=== PATIENT | male | born 1965 | race Caucasian/White ===

== ENCOUNTER → 2021-04-29 15:13 | Outpatient (REF) | payer MEDICARE, MEDICAID, SELFPAY ==
--- NOTE | 2021-04-29 15:21 | ECG_ITS ---
Test Reason : chr pain syndrome Blood Pressure : / mmHG Vent. Rate : 070 BPM Atrial Rate : 070 BPM P-R Int : 156 ms QRS Dur : 090 ms QT Int : 354 ms P-R-T Axes : 086 067 075 degrees QTc Int : 382 ms Normal sinus rhythm with sinus arrhythmia RSR' or QR pattern in V1 suggests right ventricular conduction delay Intra-ventricular conduction delay When compared with ECG of 09-FEB-2020 18:35, No significant changes seen Referred By: Naseem Paredes Electronically Signed By:NELSON ESQUIVEL MD
== END ==
LOC: HO.CARD 15:13
PROVIDERS: PCP Internal Medicine; Visit Provider Physical Medicine & Rehabilitation
DX: G89.4 Chronic pain syndrome (principal); R10.2 Pelvic and perineal pain; Z79.891 Long term (current) use of opiate analgesic
CPT/HCPCS: 93005

== ENCOUNTER 2023-06-14 09:43 | Outpatient (AMB) | payer MEDICARE, MEDICAID, SELFPAY ==
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
[2023-06-14 09:45] VITALS: BP 100/68; PULSE 77; O2SAT 96; BMI 25.7
== END 2023-06-14 10:26 | disposition home or self-care (01) ==
PROVIDERS: PCP Internal Medicine; Visit Provider Internal Medicine
DX: R51.9 Headache, unspecified (principal); G89.29 Other chronic pain; M54.50 Low back pain, unspecified; N50.819 Testicular pain, unspecified; R09.81 Nasal congestion; G47.9 Sleep disorder, unspecified; H54.7 Unspecified visual loss; F90.9 Attention-deficit hyperactivity disorder, unspecified type; F41.1 Generalized anxiety disorder
CPT/HCPCS: 99214

== ENCOUNTER 2023-11-19 12:13 | Outpatient (AMB) | payer MEDICARE, MEDICAID, SELFPAY ==
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
[2023-11-19 12:34] VITALS: BP 124/84; PULSE 85; O2SAT 97; BMI 22.9
== END 2023-11-19 13:01 | disposition home or self-care (01) ==
PROVIDERS: PCP Internal Medicine; Visit Provider Internal Medicine
DX: Z00.00 Encounter for general adult medical examination without abnormal findings (principal); R51.9 Headache, unspecified; G89.29 Other chronic pain; M54.50 Low back pain, unspecified; N50.819 Testicular pain, unspecified; R09.81 Nasal congestion; G47.9 Sleep disorder, unspecified; H54.7 Unspecified visual loss; F90.9 Attention-deficit hyperactivity disorder, unspecified type; F41.1 Generalized anxiety disorder
CPT/HCPCS: 99396

== ENCOUNTER 2023-12-15 16:52 | Emergency (ER) | payer MEDICARE, MEDICAID, SELFPAY ==
--- NOTE | ~2023-12-15 | XR_ITS ---
EXAMINATION: XR CHEST 2 VIEWS CLINICAL INFORMATION: Chest pain. COMPARISON: Prior chest radiographs, most recently 05/30/2019. TECHNIQUE: Frontal and lateral views of the chest were obtained. FINDINGS: The heart, great vessels, pulmonary vasculature and mediastinum are normal. The lungs show no focal infiltrate, effusion or pneumothorax. There is no acute osseous abnormality. XR/XR chest 2V IMPRESSION: No active cardiopulmonary disease.
--- NOTE | 2023-12-15 16:58 | ECG_ITS ---
Test Reason : CHEST PAIN Blood Pressure : / mmHG Vent. Rate : 083 BPM Atrial Rate : 083 BPM P-R Int : 154 ms QRS Dur : 090 ms QT Int : 344 ms P-R-T Axes : 083 017 064 degrees QTc Int : 404 ms Normal sinus rhythm Normal ECG When compared with ECG of 29-APR-2021 15:26, No significant change was found Referred By: Sherice Lin Electronically Signed By:JONELLE KINGSTON
[2023-12-15 17:35] VITALS: BP 111/71; PULSE 70; RESP 16; TEMP 36.3; O2SAT 97; BMI 22.1
--- NOTE | 2023-12-15 17:37 | ED_ITS ---
HPI - General Adult General Chief complaint: Chest Pain Stated complaint: chest pain, leg pain, fatigue Related Data Home Medications ?Medication ?Instructions ?Recorded ?Confirmed methadone 10 mg tablet 10 mg PO QID chronic pain 06/14/23 11/19/23 Previous Rx's ?Medication ?Instructions ?Recorded dextroamphetamine-amphetamine 20 20 mg PO DAILY 30 days #30 tabs 11/25/23 mg tablet (Adderall) lorazepam 1 mg tablet 1 mg PO BID PRN anxiety 30 days 12/13/23 #60 tabs Allergies Allergy/AdvReac Type Severity Reaction Status Date / Time No Known Allergies Allergy Verified 12/15/23 17:36 [facility] Past Medical History Medical History (Updated 12/16/23 @ 00:00 by Jackie Hayden) Chronic facial pain Benign prostatic hyperplasia Anxiety disorder Attention deficit hyperactivity disorder (ADHD) Chronic pain in testicle Chronic low back pain Surgical History (Updated 11/19/23 @ 12:56 by Jerome Strauss MD) Hx of vasectomy History of urologic surgery History of facial surgery History of shoulder surgery Family History Family History Father Diabetes Hypertension Hyperlipidemia CHF (congestive heart failure) Mother Diabetes Hypertension Hyperlipidemia CVD (cardiovascular disease) Social History Social History Housing: House Patient Tobacco Use Status: Never used Tobacco e-Cigarette/Vaping Use: Never Used Advance Directives: No Advance Directives Information Provided: No service: No Current occupational status: disabled Cognitive needs: No Hearing needs: No Vision needs: No Physical Exam ED Vital Signs: BMI result Body Mass Index 22.1 Course Course Course Narrative: This is a rapid medical exam performed by Harpreet Lin NP: Additional HPI, ROS, PE not included below will be deferred to primary provider. Patient is a 58-year-old male with history of BPH, ADHD, anxiety presenting to the ED with complaint of intermittent chest pain and tightness for the past year. Denies coughing. Reports 30lb weight loss over the past 3 months to one year, patient unsure. Calf and thigh spasms. Currently on methadone for pain. Saw PCP on 11/18, did not mention the chest pain at that time. Son is with patient, states he wants patient checked out all at once and patient admits he doesn't like going to the doctor, having labs drawn, etc. Plan: labs, cxr Medical Decision Making Lab Data 12/15/23 17:58 12/15/23 17:58 Labs: Lab Results 12/15/23 Range/Units 17:58 WBC 5.4 (4.8-10.8) X10*3/uL RBC 3.81 L (4.60-5.80) X10*6/uL Hgb 10.6 L (14.0-18.0) g/dl Hct 31.2 L (42.0-52.0) % MCV 81.9 (80.0-98.0) fL MCH 27.8 (27.0-33.0) pg MCHC 34.0 (31.0-36.0) g/dl RDW 13.7 (11.0-16.0) % Plt Count 134 L (160-400) X10*3/uL MPV 10.6 (9.4-12.4) fL Immature Gran % (Auto) 0.2 (0.0-0.4) % Neut % (Auto) 68.7 (45-73) % Lymph % (Auto) 14.2 L (20-40) % [place] % (Auto) 10.9 (2-11) % Eos % (Auto) 5.3 H (0-4) % Baso % (Auto) 0.7 (0-2) % Lymph # (Auto) 0.8 L (1.2-4.9) X10*3/uL [place] # (Auto) 0.6 (0.1-1.2) X10*3/uL Eos # (Auto) 0.3 (0.0-0.4) X10*3/uL Baso # (Auto) 0.0 (0.0-0.2) X10*3/uL Abs Immat Gran (auto) 0.01 (0.00-0.03) X10*3/uL Absolute Neuts (auto) 3.7 (2.0-8.3) x10*3/uL Absolute Nucleated RBC 0.000 (0.0-0.012) X10*3/uL Nucleated RBC % (auto) 0.0 (0.0-0.2) /100WBC PT 12.7 (11.1-13.3) SEC INR 1.0 (0.9-1.1) Sodium 139 (135-145) mmol/L Potassium 4.1 (3.3-5.1) mmol/L Chloride 105 (96-108) mmol/L Carbon Dioxide 23 (22-29) mmol/L Anion Gap 15 (12-20) BUN 50 H (9-16) mg/dL Creatinine 3.17 H (0.5-1.4) mg/dL Estim Creat Clear Calc 23.7 Estimated GFR 20 Random Glucose 123 H (60-115) mg/dL Calcium 9.3 (8.4-10.2) mg/dL Magnesium 1.8 (1.6-2.6) mg/dL Total Bilirubin 0.3 (0.0-1.0) mg/dL AST 31 (5-37) U/L ALT 52 H (0-40) U/L Alkaline Phosphatase 144 H (39-117) U/L Troponin I High Sens < 2.7 (<3.5-35.0) ng/L Total Protein 6.6 (6.5-8.0) g/dL Albumin 3.9 (3.5-5.0) g/dL TSH 3.57 (0.32-4.0) uIU/mL Discharge Plan Discharge Clinical Impression: Diagnosis unknown Patient Disposition: Left W/O Completing Treatment Prescriptions: No Action dextroamphetamine-amphetamine [Adderall] 20 mg tablet 20 mg PO DAILY 30 Days Qty: 30 0RF Rx Instructions: This will be the LAST REFILL UNLESS patient schedules and is SEEN for a follow up appt. He has NOT BEEN SEEN IN OVER A YEAR. NO MORE REFILLS AFTER THIS UNLESS PATIENT KEEPS APPT - needs to schedule one BYRON lorazepam 1 mg tablet 1 mg PO BID PRN (Reason: anxiety) 30 Days Qty: 60 0RF methadone 10 mg tablet 10 mg PO QID Rx Instructions: total of 40 mg/day - Rx is being prescribed and managed by [facility] Discharge Date/Time: 12/15/23 21:21
[2023-12-15 18:03] LABS: MANUAL DIFF FLAG NO
[2023-12-15 18:16] LABS: Prothrombin Time 12.7 SEC (11.1-13.3)
[2023-12-15 18:24] LABS: Basophils Percent Auto 0.7 % (0-2); Eosinophils Absolute Auto 0.3 X10*3/uL (0.0-0.4); Eosinophils Percent Auto 5.3 % (0-4); Hematocrit 31.2 % (42.0-52.0); Hemoglobin 10.6 g/dl (14.0-18.0); Imm Gran Abs Auto 0.01 X10*3/uL (0.00-0.03); Imm Gran Pct Auto 0.2 % (0.0-0.4); Lymphocytes Absolute Auto 0.8 X10*3/uL (1.2-4.9); Lymphocytes Percent Auto 14.2 % (20-40); Mean Corpuscular Hemoglobin 27.8 pg (27.0-33.0); Mean Corpuscular Volume 81.9 fL (80.0-98.0); Mean Platelet Volume 10.6 fL (9.4-12.4); Monocytes Absolute Auto 0.6 X10*3/uL (0.1-1.2); Monocytes Percent Auto 10.9 % (2-11); Neutrophils Absolute Auto 3.7 x10*3/uL (2.0-8.3); Neutrophils Percent Auto 68.7 % (45-73); Platelet Count 134 X10*3/uL (160-400); Red Blood Count 3.81 X10*6/uL (4.60-5.80); Red Cell Distribution Width 13.7 % (11.0-16.0); White Blood Count 5.4 X10*3/uL (4.8-10.8)
[2023-12-15 18:30] LABS: Alanine Aminotransferase 52 U/L (0-40); Albumin Level 3.9 g/dL (3.5-5.0); Alkaline Phosphatase 144 U/L (39-117); Anion Gap 15 (12-20); Aspartate Amino Transferase 31 U/L (5-37); Bilirubin Total 0.3 mg/dL (0.0-1.0); Blood Urea Nitrogen 50 mg/dL (9-16); Calcium 9.3 mg/dL (8.4-10.2); Carbon Dioxide 23 mmol/L (22-29); Chloride 105 mmol/L (96-108); Creatinine Clr Calc Pharmacy 23.7; Estimated Glomerular Filt Rate 20; Glucose Random 123 mg/dL (60-115); Magnesium 1.8 mg/dL (1.6-2.6); Potassium 4.1 mmol/L (3.3-5.1); Sodium 139 mmol/L (135-145); Total Protein 6.6 g/dL (6.5-8.0)
[2023-12-15 18:32] LABS: Troponin-I High Sensitivity < 2.7 ng/L (<3.5-35.0)
[2023-12-15 18:44] LABS: TSH reflex Free T4 3.57 uIU/mL (0.32-4.0)
[2023-12-18 00:43] LABS: A. Phagocytphilium DNA,RT-PCR NOT DETECTED (NOT DETECTED); Babesia Microti DNA, RT-PCR NOT DETECTED (NOT DETECTED); Borrelia Miyamotoi,DNA RT-PCR NOT DETECTED (NOT DETECTED); E.Chaffeensis DNA RT-PCR NOT DETECTED (NOT DETECTED); Lyme(Borrelia ssp)DNA RT-PCR NOT DETECTED (NOT DETECTED)
== END 2023-12-15 21:21 | disposition left against medical advice (07) ==
PROVIDERS: Registered Nurse Emergency; Emergency Provider Emergency Medicine; PCP Internal Medicine
DX: R07.9 Chest pain, unspecified (principal); M79.606 Pain in leg, unspecified; R53.83 Other fatigue
CPT/HCPCS: 36415; 71046; 80053; 83735; 84443; 84484; 85025; 85610; 87468; 87469; 87478; 87484; 87798; 93005; 99283

== ENCOUNTER → 2023-12-15 16:58 | Outpatient (BNV) | payer MEDICARE, MEDICAID, SELFPAY | PROVIDERS: Emergency Provider Emergency Medicine; PCP Internal Medicine; Visit Provider Internal Medicine | DX: R07.9 Chest pain, unspecified (principal) | CPT/HCPCS: 93010 ==

== ENCOUNTER 2023-12-17 11:15 | Emergency (ER) | payer MEDICARE, MEDICAID, SELFPAY ==
--- NOTE | ~2023-12-17 | CT_ITS ---
EXAMINATION: CT CHEST WITHOUT CONTRAST CLINICAL INFORMATION: Dyspnea. 30 pound weight loss. COMPARISON: Previous chest x-ray 12/15/2023 TECHNIQUE: Multidetector volumetric CT imaging of the chest was done. Axial MIP volume rendering provided. Sagittal and coronal reformatted images were obtained. This CT examination was performed using dose optimization techniques as appropriate, variously including the following: *Automated exposure control *Adjustment of mA and/or kV according to patient size (this includes techniques or standardized protocols for targeted exams where dose is matched to indication/reason for exam; i.e. extremities or head) *Use of iterative reconstruction technique DLP: 244 mGy-cm FINDINGS: LUNGS: Lungs are well-inflated. 2 mm. Fissural right lower lobe nodule axial image 238 series 7. This probably represents a subpleural lymph node. 2 mm perifissural right middle lobe nodule adjacent to the minor fissure also probably representing a perifissural lymph node. 3 mm peripheral or subpleural right middle lobe nodule probably representing a subpleural lymph node axial image 365 series 7. 2 mm peripheral right lower lobe nodule axial image 368 series 7. 2 mm calcified left lower lobe nodule axial image 407 series 7. Scarring or subsegmental atelectasis at the lung bases. No endobronchial or endotracheal lesion. MEDIASTINUM: Normal heart size. No pericardial effusion. Shotty mediastinal lymphadenopathy. Normal caliber thoracic aorta. CORONARY ARTERY CALCIFICATION: None visualized on this study. PLEURA: There is no pleural effusion. No pleural mass or thickening. AXILLA: No lymphadenopathy. UPPER ABDOMEN: See abdominal and pelvic CT report from the same day OSSEOUS STRUCTURES: Degenerative changes of the spine. CT/CT chest wo IV con IMPRESSION: Well inflated lungs. Small pulmonary nodules. According to the UPDATED 2017 Fleischner Society recommendations, the advised follow-up imaging for less than 6 mm solid nodule: Low risk, no chest CT follow-up and high risk, optional chest CT follow-up in one year. Fleischner guidelines were followed.
--- NOTE | ~2023-12-17 | CT_ITS ---
EXAMINATION: CT ABDOMEN AND PELVIS WITHOUT CONTRAST CLINICAL INFORMATION: Acute renal failure. 30 pound weight loss. COMPARISON: None available. TECHNIQUE: Multidetector volumetric imaging was performed from the superior aspect of the liver through the pubic symphysis. Sagittal and coronal reformatted images were obtained on the technologist's workstation. This CT examination was performed using dose optimization techniques as appropriate, variously including the following: *Automated exposure control *Adjustment of mA and/or kV according to patient size (this includes techniques or standardized protocols for targeted exams where dose is matched to indication/reason for exam; i.e. extremities or head) *Use of iterative reconstruction technique DLP: 358 mGy-cm FINDINGS: LIVER, GALLBLADDER, AND BILIARY TREE: The liver is normal in size, shape, and attenuation. No focal hepatic lesion or intrahepatic biliary ductal dilatation is present. The gallbladder is unremarkable with no evidence of radiopaque gallstones, gallbladder wall thickening, or obvious pericholecystic inflammatory changes. The common bile duct is dilated measuring up to 1.4 cm. PANCREAS: Unremarkable. SPLEEN: Lightly enlarged measuring 14 cm in length. ADRENAL GLANDS: Unremarkable. KIDNEYS AND URETERS: The kidneys are normal in size, both measuring 12.7 cm in length. There is question bilateral renal cortical thickening. No hydronephrosis, hydroureter, or calculi seen. No perinephric stranding. BLADDER: Not optimally distended. Difficult to exclude mild diffuse bladder wall thickening. Clinically correlate for cystitis. GASTROINTESTINAL TRACT: The small and large bowel are unremarkable. The appendix is unremarkable. ABDOMINAL WALL: No significant hernia is appreciated. LYMPH NODES: Normal. VASCULAR: [place] upper abdominal varices. PELVIC VISCERA: Unremarkable. OSSEOUS STRUCTURES: Degenerative changes of the spine and hip joints. CT/CT abdomen pelvis wo IV con IMPRESSION: Normal-sized kidneys with question bilateral renal cortical thickening. Bladder not optimally distended. Difficult to exclude mild diffuse bladder wall thickening. Correlate for cystitis. Dilated common bile duct. Slightly enlarged spleen. Question upper abdominal varices. Fleischner guidelines were followed.
[2023-12-17 11:24] VITALS: BP 140/90; PULSE 108; RESP 18; TEMP 37.4; O2SAT 99; BMI 21.6
--- NOTE | 2023-12-17 11:26 | ED.GENADULT ---
HPI - General Adult General Chief complaint: Weakness Stated complaint: SOB Multiple Complaints Time Seen by Provider: 12/17/23 13:07 Source: patient Mode of arrival: ambulatory Limitations: no limitations History of Present Illness ED Provider: GEOVANNI SOLER narrative: 58 yo male with chronic pain issues on methadone and anxiety who notes unexplained weight loss and abdominal pain for 6 months nausea, weakness, dyspnea and lost 25 to 30lbs. He was brought in by son after going to his PCP. He was seen here two days ago in triage but LWCT. He presents again with similar symptoms but on arrival to room refused IV with RNs MD complaint: weight loss, fatigue, dyspnea Onset (ago): month(s) (6) Location: chest and abdomen Radiation: non-radiation Severity: moderate Quality: aching Pain Consistency: intermittent Relieving factors: none Exacerbating factors: movement Associated symptoms: loss of appetite, malaise, nausea/vomiting and weakness Treatments prior to arrival: none Related Data Home Medications ?Medication ?Instructions ?Recorded ?Confirmed methadone 10 mg tablet 10 mg PO QID chronic pain 06/14/23 11/19/23 Previous Rx's ?Medication ?Instructions ?Recorded dextroamphetamine-amphetamine 20 20 mg PO DAILY 30 days #30 tabs 11/25/23 mg tablet (Adderall) lorazepam 1 mg tablet 1 mg PO BID PRN anxiety 30 days 12/13/23 #60 tabs Allergies Allergy/AdvReac Type Severity Reaction Status Date / Time No Known Allergies Allergy Verified 12/17/23 11:27 Review of Systems Review of Systems: Constitutional : No Fever, No Chills, pos Fatigue ENT/Mouth : No sore throat, No Rhinorrhea Eyes: No Eye Pain, No Swelling, No Redness Cardiovascular : No Chest Pain, No SOB, No Dyspnea on Exertion Respiratory : No Cough, No Sputum Gastrointestinal : pos Nausea, No Vomiting, No Diarrhea, No abdominal Pain Genitourinary : No Dysuria, pos Urinary Frequency, No Hematuria, Musculoskeletal : No joint pain, No Myalgias, No Joint Swelling Skin : No Skin Lesions, No rash Neuro : pos Weakness, No Numbness, No Dizziness, no Headache Psych : No Anxiety/Panic, No Depression Heme/Lymph: No Bruising, No Bleeding,No Lymphadenopathy Endocrine : No Polyuria, No Polydipsia All other systems reviewed and are negative PMFSH Past Medical History Attestation statement: The following information was validated with the patient. Source: old records reviewed Medical History Chronic facial pain Benign prostatic hyperplasia Anxiety disorder Attention deficit hyperactivity disorder (ADHD) Chronic pain in testicle Chronic low back pain Surgical History Hx of vasectomy History of urologic surgery History of facial surgery History of shoulder surgery Family History Family History Father Diabetes Hypertension Hyperlipidemia CHF (congestive heart failure) Mother Diabetes Hypertension Hyperlipidemia CVD (cardiovascular disease) Social History Social History Housing: House Patient Tobacco Use Status: Never used Tobacco e-Cigarette/Vaping Use: Never Used Advance Directives: No Advance Directives Information Provided: No service: No Current occupational status: disabled Cognitive needs: No Hearing needs: No Vision needs: No Physical Exam ED Vital Signs: Vital Signs - 24 hr 12/17/23 11:24 12/17/23 13:07 Temperature 99.3 F 98.2 F Pulse Rate 108 H 88 Respiratory Rate 18 14 Blood Pressure 140/90 H 127/88 Pulse Oximetry 99 99 Oxygen Delivery Method Room Air Room Air BMI result Body Mass Index 21.6 Appearance: Alert. Oriented X3. No acute distress. thin appearing, temporal wasting Eyes: Pupils equal, round and reactive to light. ENT: Pharynx normal. Neck: Normal inspection. Neck supple. CVS: Normal heart rate and rhythm. Pulses normal. Respiratory: No respiratory distress. Abdomen: Soft and nontender. Skin: Skin warm and dry. Normal skin color. Normal skin turgor. Extremities: No lower extremity edema. Neuro: Oriented X 3. No motor deficit. No sensory deficit. Course Course Course Narrative: This is an RME performed by Ryan Graham CNP: Additional HPI, ROS, PE not included below will be deferred to primary provider. Patient is a 58-year-old male with past medical history of BPH, ADHD, anxiety who presents emergency department for evaluation shortness of breath, nausea without vomiting diarrhea or constipation, urinary frequency, generalized weakness, 30 weight loss past 3 months, muscle spasms of his lower extremities. He reports that came to the emergency department 2 days ago, but left from the waiting room without being seen after having labs and x-ray obtained. On review of his records, renal function with BUN/creatinine 50/3.17 no history of prior Medical Decision Making Medical Decision Making MDM Narrative: 58 yo male with chronic back pain and anxiety on methadone and ativan - here with abnormal Cr and unexplained weight loss I talked to him about getting IVF and CT scan and admission to the hospital he refuses to stay and wait for CT reads or get IVF - he is aware he is in renal failure and needs treatment and his weight loss could be related to cancer. He is alert and oriented x 3 walked out of here with steady gait. Conversation was coherent Differential Diagnosis Differential Diagnoses: The differential diagnosis associated with the presentation includes renal failure, malignancy, FTT Admission/Observation Consideration of admission/observation: Escalation of care including admission/observation considered declined admission Lab Data [facility] Lab Attestation statement: I reviewed the patient's lab results. 12/17/23 12:14 12/17/23 12:14 Labs: Lab Results 12/17/23 12/17/23 Range/Units 12:14 12:18 WBC 5.9 (4.8-10.8) X10*3/uL RBC 4.12 L (4.60-5.80) X10*6/uL Hgb 11.4 L (14.0-18.0) g/dl Hct 33.5 L (42.0-52.0) % MCV 81.3 (80.0-98.0) fL MCH 27.7 (27.0-33.0) pg MCHC 34.0 (31.0-36.0) g/dl RDW 13.9 (11.0-16.0) % Plt Count 124 L (160-400) X10*3/uL MPV 10.5 (9.4-12.4) fL Immature Gran % (Auto) 0.3 (0.0-0.4) % Neut % (Auto) 69.0 (45-73) % Lymph % (Auto) 16.9 L (20-40) % Josephine % (Auto) 8.3 (2-11) % Eos % (Auto) 4.7 H (0-4) % Baso % (Auto) 0.8 (0-2) % Lymph # (Auto) 1.0 L (1.2-4.9) X10*3/uL Josephine # (Auto) 0.5 (0.1-1.2) X10*3/uL Eos # (Auto) 0.3 (0.0-0.4) X10*3/uL Baso # (Auto) 0.1 (0.0-0.2) X10*3/uL Abs Immat Gran (auto) 0.02 (0.00-0.03) X10*3/uL Absolute Neuts (auto) 4.1 (2.0-8.3) x10*3/uL Absolute Nucleated RBC 0.000 (0.0-0.012) X10*3/uL Nucleated RBC % (auto) 0.0 (0.0-0.2) /100WBC PT 12.7 (11.1-13.3) SEC INR 1.0 (0.9-1.1) Sodium 138 (135-145) mmol/L Potassium 5.1 D (3.3-5.1) mmol/L Chloride 106 (96-108) mmol/L Carbon Dioxide 24 (22-29) mmol/L Anion Gap 13 (12-20) BUN 48 H (9-16) mg/dL Creatinine 3.37 H (0.5-1.4) mg/dL Estim Creat Clear Calc 21.8 Estimated GFR 19 Random Glucose 96 (60-115) mg/dL Calcium 9.4 (8.4-10.2) mg/dL Magnesium 1.8 (1.6-2.6) mg/dL Total Bilirubin 0.4 (0.0-1.0) mg/dL AST 41 H (5-37) U/L ALT 54 H (0-40) U/L Alkaline Phosphatase 146 H (39-117) U/L Total Creatine Kinase 106 (38-174) U/L Total Protein 7.2 (6.5-8.0) g/dL Albumin 4.0 (3.5-5.0) g/dL Lipase 25 (8-78) U/L Urine Color Yellow Urine Appearance Cloudy Urine pH 5.0 (5.0-9.0) Ur Specific [place] 1.010 (1.005-1.025) Urine Protein 30 (1+) H (Neg-Trace) mg/dL Urine Glucose (UA) Negative (Negative) mg/dL Urine Ketones Negative (Negative) mg/dL Urine Blood Negative (Negative) Urine Nitrite Negative (Negative) Ur Leukocyte Esterase Negative (Negative) Urine RBC 0-2 (0-2) /HPF Urine WBC 0-5 (0-5) /HPF Ur Squamous Epith Cells 0-2 (0-2) /HPF Urine Bacteria None Seen (None Seen) Hyaline Casts 0-2 (0-2) /LPF Independent Interpretation I performed an independent interpretation of an: CT Scan External Record Review External record reviewed: Prior outpatient labs Discharge Plan Discharge Clinical Impression: LALY (acute kidney injury), Unexplained weight loss Patient Disposition: Left Against Medical Advice Prescriptions: No Action dextroamphetamine-amphetamine [Adderall] 20 mg tablet 20 mg PO DAILY 30 Days Qty: 30 0RF Rx Instructions: This will be the LAST REFILL UNLESS patient schedules and is SEEN for a follow up appt. He has NOT BEEN SEEN IN OVER A YEAR. NO MORE REFILLS AFTER THIS UNLESS PATIENT KEEPS APPT - needs to schedule one BYRON lorazepam 1 mg tablet 1 mg PO BID PRN (Reason: anxiety) 30 Days Qty: 60 0RF methadone 10 mg tablet 10 mg PO QID Rx Instructions: total of 40 mg/day - Rx is being prescribed and managed by [facility] Discharge Date/Time: 12/17/23 14:51 Print Language: German
--- NOTE | 2023-12-17 11:32 | ECG_ITS ---
Test Reason : SOB Blood Pressure : / mmHG Vent. Rate : 090 BPM Atrial Rate : 090 BPM P-R Int : 166 ms QRS Dur : 088 ms QT Int : 328 ms P-R-T Axes : 043 005 040 degrees QTc Int : 401 ms Normal sinus rhythm Normal ECG When compared with ECG of 15-DEC-2023 17:00, No significant change was found Referred By: Perla Graham Electronically Signed By:JONELLE KINGSTON
[2023-12-17 12:19] LABS: MANUAL DIFF FLAG NO
[2023-12-17 12:21] LABS: Basophils Absolute Auto 0.1 X10*3/uL (0.0-0.2); Basophils Percent Auto 0.8 % (0-2); Eosinophils Absolute Auto 0.3 X10*3/uL (0.0-0.4); Eosinophils Percent Auto 4.7 % (0-4); Hematocrit 33.5 % (42.0-52.0); Hemoglobin 11.4 g/dl (14.0-18.0); Imm Gran Abs Auto 0.02 X10*3/uL (0.00-0.03); Imm Gran Pct Auto 0.3 % (0.0-0.4); Lymphocytes Percent Auto 16.9 % (20-40); Mean Corpuscular Hemoglobin 27.7 pg (27.0-33.0); Mean Corpuscular Volume 81.3 fL (80.0-98.0); Mean Platelet Volume 10.5 fL (9.4-12.4); Monocytes Absolute Auto 0.5 X10*3/uL (0.1-1.2); Monocytes Percent Auto 8.3 % (2-11); Neutrophils Absolute Auto 4.1 x10*3/uL (2.0-8.3); Platelet Count 124 X10*3/uL (160-400); Red Blood Count 4.12 X10*6/uL (4.60-5.80); Red Cell Distribution Width 13.9 % (11.0-16.0); White Blood Count 5.9 X10*3/uL (4.8-10.8)
[2023-12-17 12:26] LABS: Appearance Urine Cloudy; Color Urine Yellow; Glucose Urine UA Negative (Negative); Leukocyte Esterase Urine Negative (Negative); Nitrite Urine Negative (Negative); UMIC TRIGGER UACC YES; Urine Blood Negative (Negative); Urine Ketones Negative (Negative); Urine Protein 30 (1+) mg/dL (Neg-Trace)
[2023-12-17 12:30] LABS: Prothrombin Time 12.7 SEC (11.1-13.3)
[2023-12-17 12:39] LABS: Bacteria Urine None Seen (None Seen); Hyaline Casts Urine 0-2 /LPF (0-2); RBC Urine 0-2 /HPF (0-2); Squamous Epithelial Cell Urine 0-2 /HPF (0-2); WBC Urine 0-5 /HPF (0-5)
[2023-12-17 12:51] LABS: Alanine Aminotransferase 54 U/L (0-40); Alkaline Phosphatase 146 U/L (39-117); Anion Gap 13 (12-20); Aspartate Amino Transferase 41 U/L (5-37); Bilirubin Total 0.4 mg/dL (0.0-1.0); Blood Urea Nitrogen 48 mg/dL (9-16); Calcium 9.4 mg/dL (8.4-10.2); Carbon Dioxide 24 mmol/L (22-29); Chloride 106 mmol/L (96-108); Creatinine Clr Calc Pharmacy 21.8; Estimated Glomerular Filt Rate 19; Glucose Random 96 mg/dL (60-115); Magnesium 1.8 mg/dL (1.6-2.6); Potassium 5.1 mmol/L (3.3-5.1); Sodium 138 mmol/L (135-145); Total Protein 7.2 g/dL (6.5-8.0)
[2023-12-17 13:07] VITALS: BP 127/88; PULSE 88; RESP 14; TEMP 36.8; O2SAT 99
--- NOTE | 2023-12-17 13:40 | PC.NURSE ---
patient ambulated off of unit with steady gait, stated he was leaving
[2023-12-17 14:01] LABS: Lipase 25 U/L (8-78)
== END 2023-12-17 14:51 | disposition left against medical advice (07) ==
PROVIDERS: Nurse Practitioner Family; Emergency Provider Emergency Medicine; PCP Internal Medicine
DX: R06.02 Shortness of breath (principal); R53.1 Weakness; R11.0 Nausea; R63.4 Abnormal weight loss; R07.89 Other chest pain; Z79.899 Other long term (current) drug therapy
CPT/HCPCS: 36415; 71250; 74176; 80053; 81001; 82550; 83690; 83735; 85025; 85610; 93005; 99284

== ENCOUNTER → 2023-12-17 11:32 | Outpatient (BNV) | payer MEDICARE, MEDICAID, SELFPAY | PROVIDERS: Emergency Provider Emergency Medicine; PCP Internal Medicine; Visit Provider Internal Medicine | DX: R06.02 Shortness of breath (principal) | CPT/HCPCS: 93010 ==

== ENCOUNTER 2023-12-24 08:15 | Outpatient (AMB) | payer MEDICARE, MEDICAID, SELFPAY ==
[2023-12-24 08:17] VITALS: BP 136/72; PULSE 84; O2SAT 98; BMI 22.1
--- NOTE | 2023-12-24 08:17 | A.OFFPC_ITS ---
Vital Signs 12/24/23 08:17 Height 5 ft 9 in Weight 150 lb BMI 22.1 BP 136/72 Blood Pressure Location Lt brachial Position Sitting Pulse 84 Pulse Source Pulse Oximeter Pulse Oximetry (%) 98 Oxygen Delivery Method Room Air Intake Visit Reasons: ed follow up for chest pain 12/16 er visit at [facility] [place] Allergies No Known Allergies Allergy (Verified 12/24/23 08:18) Tobacco use date assessed: 11/19/23 Dental Screening Dental Screen Date: 12/24/23 Did you have a dental visit in the last 12 months?: Yes Did you have a dental problem in the last 6 months where you did not have access to dental care?: No Was dental information given to patient?: Patient has dentist HPI HPI Comments History of Present Illness Details 58 y/o male patient who presents to the clinic for Hospital ED follow up. Pt was seen and evaluated twice in one week (12/14 and 12/16) for c/o SOB, Left lower abdominal pain, and un-explained weight loss. Unfortunately Patient left the Hospital twice against medical Advise. Pt reports 30 pound weight loss in the 3-4 months time frame. He does endorse low Calorie intake (eats Hot Pockets everyday) and sometimes skips days without eating. While in the Hospital CT Scan Chest (done 12/16): FINDINGS: LUNGS: Lungs are well-inflated. 2 mm. Fissural right lower lobe nodule axial image 238 series 7. This probably represents a subpleural lymph node. 2 mm perifissural right middle lobe nodule adjacent to the minor fissure also probably representing a perifissural lymph node. 3 mm peripheral or subpleural right middle lobe nodule probably representing a subpleural lymph node axial image 365 series 7. 2 mm peripheral right lower lobe nodule axial image 368 series 7. 2 mm calcified left lower lobe nodule axial image 407 series 7. Scarring or subsegmental atelectasis at the lung bases. No endobronchial or endotracheal lesion. With Recommendation for f/u: Low risk, no chest CT follow-up and high risk, optional chest CT follow-up in one year. Pt has scheduled Appointment with PCP 01/21/24. [facility] Medical History Chronic facial pain Benign prostatic hyperplasia Anxiety disorder Attention deficit hyperactivity disorder (ADHD) Chronic pain in testicle Chronic low back pain Surgical History Hx of vasectomy History of urologic surgery History of facial surgery History of shoulder surgery Family History Father Diabetes Hypertension Hyperlipidemia CHF (congestive heart failure) Mother Diabetes Hypertension Hyperlipidemia CVD (cardiovascular disease) Social History Housing: House Patient Tobacco Use Status: Former Tobacco user Tobacco use type: Cigarette e-Cigarette/Vaping Use: Never Used Second Hand Smoke Exposure: No service: No Current occupational status: disabled Cognitive needs: No Hearing needs: No Vision needs: Yes Questionnaire PHQ-9 Over the last 2 weeks, how often have you been bothered by any of the following problems? 1. Little interest or pleasure in doing things: more than half the days 2. Feeling down, depressed, or hopeless: several days 3. Trouble falling or staying asleep, or sleeping too much: more than half the days 4. Feeling tired or having little energy: more than half the days 5. Poor appetite or overeating: several days 6. Feeling bad about yourself - or that you are a failure or have let yourself or your family down: more than half the days 7. Trouble concentrating on things, such as reading the newspaper or watching television: several days 8. Moving or speaking so slowly that other people could have noticed. Or the opposite - being so fidgety or restless that you have been moving around a lot more than usual: not at all 9. Thoughts that you would be better off or of hurting yourself in some way: not at all Total score: 11 Depression Screening Interpretation: Positive Depression Screening Follow-up: Existing condition and In treatment Depression Screening Done: Yes 99780 - PHQ-9 Billing: Yes Source: Developed by Drs. Shahab Hdz, Flori Alvarez, Navi Monterroso and colleagues, with an educational candida from [employer]. Thrive Questionnaire Date Thrive assessed: 11/19/23 AUDIT C Alcohol Use Questionnaire (AUDIT-C) 1. How often do you have a drink containing alcohol?: Monthly or less 2. How many drinks containing alcohol do you have on a typical day when you are drinking?: 1 or 2 3. How often do you have six or more drinks on one occasion?: Never Total Score: 1 Score Reviewed/Action Taken: Yes MICHELLE-7 AMB Questionnaire MICHELLE-7 Date MICHELLE - 7 assessed: 11/19/23 Feeling nervous, anxious, or on edge: 1 = Several days Not being able to stop or control worryin = Several days Worrying too much about different things: 1 = Several days Trouble relaxin = Several days Being so restless that it is hard to sit still: 1 = Several days Becoming easily annoyed or irritable: 1 = Several days Feeling afraid as if something awful might happen: 1 = Several days Total MICHELLE-7 score (0-4 normal; 5-9 mild; 10-14 moderate; 15-21 severe): 7 Source: Developed by Drs. Shahab Hdz, Flori Alvarez, Navi Monterroso and colleagues, with an educational candida from [employer]. Review of Systems Const All systems reviewed & are unremarkable except as noted in HPI and below Physical exam (Primary Care) Vital Signs: Last Vital Signs Pulse 84 12/24/23 08:17 BP 136/72 12/24/23 08:17 Pulse Ox 98 12/24/23 08:17 Oxygen Delivery Method Room Air 12/24/23 08:17 BMI result Body Mass Index 22.1 Tobacco/Smoking Status: Tobacco use Status Tobacco use date assessed 11/19/23 12/24/23 08:23 Patient Tobacco Use Status Former Tobacco user 12/24/23 08:23 Tobacco use type Cigarette 12/24/23 08:23 e-Cigarette/Vaping Use Never Used 12/24/23 08:23 PHQ-9: PHQ-9 Score PHQ-9: Total score 11 12/24/23 08:23 Depression Screening Interpretation: Positive Depression Screening Follow-up: Existing condition and In treatment Thrive Assessment: Date of Thrive Assessment Date Thrive assessed 11/19/23 12/24/23 08:23 Const General: cooperative, no acute distress and well groomed Nutritional Appearance: underweight Orientation/consciousness: patient oriented x3 Resp Effort & Inspection: normal respiratory effort and able to speak in complete sentences Auscultation: clear to auscultation bilaterally Cardio Rate: regular rate Rhythm: regular rhythm GI Inspection: Yes normal to inspection Palpation (GI): Soft to palpation, not firm, Tenderness to palpation present (GI) in the LLQ and in the LUQ, no guarding, not rigid, No hepatosplenomegaly present, no hernias and no masses Skin General skin exam: no rashes or lesions noted Neuro General: patient oriented x3, gait normal and moves all extremities Psych Speech and movement: Normal speech and movement present Assessment and Plan Assessment & Plan (1) Weight loss, unintentional: Code(s): R63.4 - Abnormal weight loss Plan: - Advised Pt to F/U with PCP as scheduled. - Encouraged Pt to maintain a well balanced diet and increase Calorie Intake - Also Advised Pt if pain persists to go to Emergency room - Discussed in details the results of CT Scan and recommendations. (2) Acute kidney injury: Code(s): N17.9 - Acute kidney failure, unspecified Plan: Follow up with PCP or ED if pain persists. Coding Level of Care Code Est Pt Level 4 (19282) Diagnoses Weight loss, unintentional R63.4 Acute kidney injury N17.9 Time Spent (min) 25 Comment Spent most of the time going through Hospital Imaging and results. Answered ques tions.
== END 2023-12-24 09:56 | disposition home or self-care (01) ==
LOC: HO.HMGH 08:15
PROVIDERS: PCP Internal Medicine; Visit Provider Nurse Practitioner Family
DX: R63.4 Abnormal weight loss (principal); N17.9 Acute kidney failure, unspecified
CPT/HCPCS: 99214

== ENCOUNTER 2024-02-15 14:52 | Outpatient (AMB) | payer MEDICARE, MEDICAID, SELFPAY ==
[2024-02-15 14:53] VITALS: BP 138/76; PULSE 73; O2SAT 99; BMI 21.9
--- NOTE | 2024-02-15 14:53 | A.OFFPC_ITS ---
Vital Signs 02/15/24 14:53 Height 5 ft 9 in Weight 148 lb BMI 21.9 BP 138/76 Blood Pressure Location Lt brachial Position Sitting Pulse 73 Pulse Source Pulse Oximeter Pulse Oximetry (%) 99 Oxygen Delivery Method Room Air Intake Visit Reasons: Renal Failure Manager Private Required: No Allergies No Known Allergies Allergy (Verified 02/15/24 14:53) Medication List - Last Reconciled 02/15/24 by Driss Rajput MD atovaquone 1,500 mg PO DAILY dextroamphetamine-amphetamine 20 mg (Adderall) 20 mg PO DAILY 30 days lorazepam 1 mg PO BID PRN 30 days methadone 10 mg orally 10 mg TID and 20 mg At night; - [facility] omeprazole 40 mg PO DAILY ondansetron 4 mg PO Q8H PRN prednisone 60 mg PO DAILY Tobacco use date assessed: 11/19/23 Dental Screening Dental Screen Date: 02/15/24 Did you have a dental visit in the last 12 months?: Yes Did you have a dental problem in the last 6 months where you did not have access to dental care?: No Was dental information given to patient?: Patient has dentist HPI Renal Failure HPI Details 58-year-old male 1st time being seen hav ing history of generalized anxiety disorder ADD, BPH. Review of the notes recently discharged from the hospital in February 09 for progressive renal failure renal biopsy interstitial infiltrate with numerous histiocytes consistent with non-necrotizing granulomatous reaction. Negative for neoplastic process. Working diagnosis of sarcoidosis placed on prednisone. Patient was also in the hospital at 1 time and left against medical advice elevated creatinine, had a CT scan of the abdomen without clear evidence of malignancy pulmonary nodule needs to be followed up outpatient. CT scan done of the chest 12/17/2023. 2 mm perifissural right middle lobe nodule 3 mm right middle lobe nodule advised to retest in 1 year Patient is advised to get outpatient biopsy of the kidneys. Patient has chronic low back pain and receives methadone 40 mg once a day. Had a lengthy discussion with the patient regarding the need to follow-up with Nephrology. Discussed about living healthy with fluid intake with water discussion about the diagnosis that is needs to be established. [facility] Medical History (Updated 02/15/24 @ 15:26 by Driss Rajput MD) Chronic kidney disease Chronic facial pain Benign prostatic hyperplasia Anxiety disorder Attention deficit hyperactivity disorder (ADHD) Chronic pain in testicle Chronic low back pain Surgical History Hx of vasectomy History of urologic surgery History of facial surgery History of shoulder surgery Family History Father Diabetes Hypertension Hyperlipidemia CHF (congestive heart failure) Mother Diabetes Hypertension Hyperlipidemia CVD (cardiovascular disease) Social History Housing: House Patient Tobacco Use Status: Former Tobacco user Tobacco use type: Cigarette e-Cigarette/Vaping Use: Never Used Second Hand Smoke Exposure: No service: No Current occupational status: disabled Cognitive needs: No Hearing needs: No Vision needs: Yes Questionnaire PHQ-9 Over the last 2 weeks, how often have you been bothered by any of the following problems? 1. Little interest or pleasure in doing things: more than half the days 2. Feeling down, depressed, or hopeless: several days 3. Trouble falling or staying asleep, or sleeping too much: more than half the days 4. Feeling tired or having little energy: more than half the days 5. Poor appetite or overeating: several days 6. Feeling bad about yourself - or that you are a failure or have let yourself or your family down: more than half the days 8. Moving or speaking so slowly that other people could have noticed. Or the opposite - being so fidgety or restless that you have been moving around a lot more than usual: not at all 9. Thoughts that you would be better off or of hurting yourself in some way: not at all Depression Screening Interpretation: Positive Depression Screening Follow-up: Existing condition and In treatment Depression Screening Done: Yes 49749 - PHQ-9 Billing: Yes Source: Developed by Drs. Shahab Hdz, Flori Alvarez, Navi Monterroso and colleagues, with an educational candida from [employer]. Thrive Questionnaire Date Thrive assessed: 11/19/23 AUDIT C Alcohol Use Questionnaire (AUDIT-C) 1. How often do you have a drink containing alcohol?: Monthly or less 2. How many drinks containing alcohol do you have on a typical day when you are drinking?: 1 or 2 3. How often do you have six or more drinks on one occasion?: Never Total Score: 1 Score Reviewed/Action Taken: Yes MICHELLE-7 AMB Questionnaire MICHELLE-7 Date MICHELLE - 7 assessed: 11/19/23 Source: Developed by Drs. Shahab Hdz, Flori Alvarez, Navi Monterroso and colleagues, with an educational candida from [employer]. Physical exam (Primary Care) Vital Signs: Last Vital Signs Pulse 73 02/15/24 14:53 BP 138/76 02/15/24 14:53 Pulse Ox 99 02/15/24 14:53 Oxygen Delivery Method Room Air 02/15/24 14:53 BMI result Body Mass Index 21.9 Tobacco/Smoking Status: Tobacco use Status Tobacco use date assessed 11/19/23 02/15/24 14:53 Patient Tobacco Use Status Former Tobacco user 02/15/24 14:53 Tobacco use type Cigarette 02/15/24 14:53 e-Cigarette/Vaping Use Never Used 02/15/24 14:53 PHQ-9: PHQ-9 Score PHQ-9: Total score 11 02/15/24 15:14 Depression Screening Interpretation: Positive Depression Screening Follow-up: Existing condition and In treatment Thrive Assessment: Date of Thrive Assessment Date Thrive assessed 11/19/23 02/15/24 14:53 Const General: alert; No acute distress Eyes Conjunctivae: conjunctivae normal Resp Auscultation: clear to auscultation bilaterally Cardio Rate: regular rate Rhythm: regular rhythm GI Inspection: Yes normal to inspection Extrem General: Yes normal to inspection and No edema Assessment and Plan Assessment & Plan (1) Pulmonary nodule: Comment: December 17 2023 Code(s): R91.1 - Solitary pulmonary nodule Plan: Advised to repeat CT scan in 1 year December 2024. (2) Chronic low back pain: Code(s): M54.50 - Low back pain, unspecified; G89.29 - Other chronic pain Qualifiers: Back pain laterality: midline Sciatica presence: unspecified whether sciatica present Qualified Code(s): M54.50 - Low back pain, unspecified; G89.29 - Other chronic pain Plan: Patient has been placed on methadone control pain (3) ADD (attention deficit disorder): Code(s): F98.8 - Other specified behavioral and emotional disorders with onset usually occurring in childhood and adolescence Plan: Follow-up with counseling and therapy (4) Generalized anxiety disorder: Code(s): F41.1 - Generalized anxiety disorder Plan: Continue with present medication discussed about counseling. (5) Renal failure: Code(s): N19 - Unspecified kidney failure Plan: Patient is advised to follow-up with Nephrology, considering kidney biopsy and this was done but diagnosis is not clear. asking for ensure protein Medications: Refilled lorazepam 1 mg PO BID 30 days PRN 60 tabs 0RF anxiety F41.1 - Generalized anxiety disorder dextroamphetamine-amphetamine 20 mg (Adderall) 20 mg PO DAILY 30 days 30 tabs 0RF F98.8 - Other specified behavioral and emotional disorders with onset usually occurring in childhood and adolescence Coding Level of Care Code Est Pt Level 4 (69631) Diagnoses Pulmonary nodule R91.1 Chronic midline low back pain, unspecified whether sciatica present M54.50; G89.29 Back pain laterality: midline Sciatica presence: unspecified whether sciatica present ADD (attention deficit disorder) F98.8 Generalized anxiety disorder F41.1 Renal failure N19
== END 2024-02-15 16:24 | disposition home or self-care (01) ==
LOC: HO.HMGH 14:52
PROVIDERS: PCP Internal Medicine; Visit Provider Internal Medicine
DX: R91.1 Solitary pulmonary nodule (principal); M54.50 Low back pain, unspecified; G89.29 Other chronic pain; F98.8 Other specified behavioral and emotional disorders with onset usually occurring in childhood and adolescence; F41.1 Generalized anxiety disorder; N19 Unspecified kidney failure
CPT/HCPCS: 99214

== ENCOUNTER 2024-02-18 22:07 | Emergency (ER) | payer MEDICARE, MEDICAID, SELFPAY ==
[2024-02-18 22:18] VITALS: BP 135/86; PULSE 75; O2SAT 98
[2024-02-18 22:36] VITALS: BP 144/89; PULSE 76; RESP 16; O2SAT 99; BMI 20.5
--- NOTE | 2024-02-19 00:17 | ED.GENADULT ---
HPI - General Adult General Chief complaint: General Medical Stated complaint: Falling asleep at dinner, concern for methadone OD Time Seen by Provider: 02/19/24 00:14 Source: patient and family Mode of arrival: ambulatory Limitations: no limitations History of Present Illness ED Provider: becky SOLER narrative: Patient with history of CKD recently discharge from [facility] had the labs done on 02/09 with creatinine level of 8.0 improved at the time of discharge to 5.0 according to family on methadone and lorazepam comes here as family noticed that is more confused and dozing off patient's says that he has not taking any extra dosage and urinating almost every hour no fever no chills Related Data Home Medications ?Medication ?Instructions ?Recorded ?Confirmed atovaquone 750 mg/5 mL oral 1,500 mg PO DAILY 02/15/24 02/15/24 suspension methadone 10 mg tablet 10 mg PO .COMPLEX chronic pain 02/15/24 02/15/24 omeprazole 40 mg capsule,delayed 40 mg PO DAILY 02/15/24 02/15/24 release ondansetron 4 mg disintegrating 4 mg PO Q8H PRN 02/15/24 02/15/24 tablet prednisone 20 mg tablet 60 mg PO DAILY 02/15/24 02/15/24 Previous Rx's ?Medication ?Instructions ?Recorded dextroamphetamine-amphetamine 20 20 mg PO DAILY 30 days #30 tabs 02/15/24 mg tablet (Adderall) lorazepam 1 mg tablet 1 mg PO BID PRN anxiety 30 days 02/15/24 #60 tabs Allergies Allergy/AdvReac Type Severity Reaction Status Date / Time No Known Allergies Allergy Verified 02/18/24 22:37 Review of Systems Review of Systems: Yes all other systems are reviewed and are negative [facility] Past Medical History Medical History Chronic kidney disease Chronic facial pain Benign prostatic hyperplasia Anxiety disorder Attention deficit hyperactivity disorder (ADHD) Chronic pain in testicle Chronic low back pain Surgical History Hx of vasectomy History of urologic surgery History of facial surgery History of shoulder surgery Family History Family History Father Diabetes Hypertension Hyperlipidemia CHF (congestive heart failure) Mother Diabetes Hypertension Hyperlipidemia CVD (cardiovascular disease) Social History Social History Housing: House Patient Tobacco Use Status: Former Tobacco user Tobacco use type: Cigarette e-Cigarette/Vaping Use: Never Used Second Hand Smoke Exposure: No Advance Directives: No Advance Directives Information Provided: No Do you have a plan to hurt others: No Plan service: No Current occupational status: disabled Cognitive needs: No Hearing needs: No Vision needs: Yes Physical Exam ED Vital Signs: Vital Signs - 24 hr 02/18/24 22:36 Pulse Rate 76 Respiratory Rate 16 Blood Pressure 144/89 H Pulse Oximetry 99 Oxygen Delivery Method Room Air BMI result Body Mass Index 20.5 Appearance: Alert. Oriented X3. No acute distress. Anxious Eyes: Pallor+ ENT: Pharynx normal. Oral Mucosa moist Neck: Normal inspection. Neck supple. CVS: Normal heart rate and rhythm. Pulses normal. Respiratory: No respiratory distress. Equal air entry bilateral, no wheezing/rales/rhonchi Abdomen: Soft and nontender. Bowel sounds are present, no mass palpable, no CVA tenderness Skin: Skin warm and dry. Normal skin color. Normal skin turgor. Extremities: No lower extremity edema. No calf tenderness Neuro: Oriented X 3. No motor deficit. No sensory deficit.No cerebellar signs , cranial nerves II-XII intact Medical Decision Making Medical Decision Making MDM Narrative: Postvoid bladder scan showed only 2 mL of urine. Patient refused lab patient and family aware that we will not be able to make the diagnosis without the labs and urine patient walked out of the ER with family without signing any papers Discharge Plan Discharge Clinical Impression: Renal failure Patient Disposition: Left Against Medical Advice Instructions: Impaired Kidney Function (ED) Additional Instructions: You have refused the labs and workup for your kidney problems follow up with urologist Prescriptions: No Action omeprazole 40 mg capsule,delayed release(DR/EC) 40 mg PO DAILY ondansetron 4 mg tablet,disintegrating 4 mg PO Q8H PRN prednisone 20 mg tablet 60 mg PO DAILY atovaquone 750 mg/5 mL suspension 1,500 mg PO DAILY Rx Instructions: Dr. Josi ARIZMENDI methadone 10 mg tablet 10 mg PO .COMPLEX Rx Instructions: 10 mg orally 10 mg TID and 20 mg At night; - Rx is being prescribed and managed by [facility] lorazepam 1 mg tablet 1 mg PO BID PRN (Reason: anxiety) 30 Days Qty: 60 0RF dextroamphetamine-amphetamine [Adderall] 20 mg tablet 20 mg PO DAILY 30 Days Qty: 30 0RF Stand Alone Forms: Against Medical Advice Print Language: Israeli
--- NOTE | 2024-02-19 00:39 | MHC.EDTECH ---
PATIENT DENIED FLOOD DRAW AND BLADDER SCAN ,PROVIDER AND RN AWARE .
--- NOTE | 2024-02-19 00:56 | MHC.EDTECH ---
Patient did allowed this pct to do bladder scan Provider Seamus carrillo
[2024-02-19 01:11] VITALS: BP 00/00; PULSE 0; RESP 0; TEMP -17.7; TEMP 0; O2SAT 0
== END 2024-02-19 01:12 | disposition left against medical advice (07) ==
PROVIDERS: Emergency Provider Internal Medicine; PCP Internal Medicine
DX: N19 Unspecified kidney failure (principal); R33.9 Retention of urine, unspecified; F11.20 Opioid dependence, uncomplicated; Z79.899 Other long term (current) drug therapy
CPT/HCPCS: 51798; 99284

== ENCOUNTER 2024-03-21 14:03 | Outpatient (AMB) | payer MEDICARE, MEDICAID, SELFPAY ==
[2024-03-21 14:02] VITALS: BP 160/90; PULSE 91; O2SAT 98; BMI 24.3
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
== END 2024-03-21 14:35 | disposition home or self-care (01) ==
LOC: HO.HMCH 14:03
PROVIDERS: PCP Internal Medicine; Visit Provider Internal Medicine
DX: D86.9 Sarcoidosis, unspecified (principal); R51.9 Headache, unspecified; G89.29 Other chronic pain; M54.50 Low back pain, unspecified; N50.819 Testicular pain, unspecified; E55.9 Vitamin D deficiency, unspecified; F90.9 Attention-deficit hyperactivity disorder, unspecified type; F41.1 Generalized anxiety disorder

== ENCOUNTER → 2024-03-21 14:03 | Outpatient (BNVA) | payer MEDICARE, MEDICAID, SELFPAY | PROVIDERS: PCP Internal Medicine; Visit Provider Internal Medicine | DX: D86.9 Sarcoidosis, unspecified (principal); R51.9 Headache, unspecified; G89.29 Other chronic pain; N50.819 Testicular pain, unspecified; E55.9 Vitamin D deficiency, unspecified; F90.9 Attention-deficit hyperactivity disorder, unspecified type; F41.1 Generalized anxiety disorder | CPT/HCPCS: 99212 ==

== ENCOUNTER 2024-06-09 15:40 | Outpatient (AMB) | payer MEDICARE, MEDICAID, SELFPAY ==
[2024-06-09 15:45] VITALS: BP 120/86; PULSE 76; O2SAT 98; BMI 26.3
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
--- OUTSIDE RECORDS SUMMARY | 2024-06-14 10:52 | XMS_ITS | Clinical Summary ---
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 Ordering Clinician Indication Dosage Frequency Signature (SIG) Comments Components prednisone 20 mg tablet 02-20 00:00: 00 Yes [id number] Per instruc tions DAILY Per instructio ns DAILY (route: oral) Med Classific ation: Endocrine dextroamphe tamine-amph etamine 20 mg tablet 02-15 00:00: 00 Yes [id number] Per instruc tions DAILY Per instructio ns DAILY (route: oral) Med Classific ation: Central Nervous System Agents lorazepam 1 mg tablet 02-14 00:00: 00 Yes [id number] Unavailable Per instruc tions TWICE DAILY NEEDED Per instructio ns TWICE DAILY NEEDED (route: oral) Med Classific ation: Central Nervous System Agents atovaquone 750 mg/5 mL oral suspension 02-10 00:00: 00 03-14 23:59 :00 No [id number] Per instruc tions DAILY Per instructio ns DAILY (route: oral) Med Classific ation: Anti-Infe ctive Agents methadone 10 mg tablet 02-09 00:00: 00 Yes [id number] Per instruc tions THREE TIMES DAILY AT BEDTIME Per instructio ns THREE TIMES DAILY AT BEDTIME (route: oral) Med Classific ation: Analgesic , Anti-infl ammatory or Antipyret ic omeprazole 40 mg capsule,del ayed release 02-09 00:00: 00 Yes [id number] 1 capsule DAILY 1 capsule DAILY (route: oral) Med Classific ation: Gastroint estinal Therapy Agents sevelamer carbonate 800 mg tablet 02-09 00:00: 00 03-13 00:00 :00 No [id number] Per instruc tions Per instructio ns (route: oral) Med Classific ation: Genitouri nary Therapy Bactrim 400 mg-80 mg tablet 02-02 00:00: 00 Yes [id number] 1 tablet DAILY 1 tablet DAILY (route: oral) Med Classific ation: Anti-Infe ctive Agents calcium 500 mg (as calcium carbonate 1,250 mg) tablet 02-02 00:00: 00 Yes [id number] 1 tablet 2 TIMES DAILY 1 tablet 2 TIMES DAILY (route: oral) Med Classific ation: Electroly te Balance-N utritiona l Products ondansetron 4 mg disintegrat ing tablet 01-02 00:00: 00 Yes [id number] 1 tablet EVERY 8 HOURS 1 tablet EVERY 8 HOURS (route: oral) Med Classific ation: Gastroint estinal Therapy Agents Vitamin D3 25 mcg (1,000 unit) tablet 02-02 00:00: 00 Yes [id number] 1 tablet DAILY 1 tablet DAILY (route: oral) Med Classific ation: Electroly te Balance-N utritiona l Products Vital Signs Vital Name Observation Time Observation Value Commen ts Temperature 2024-04-26 11:07:00.000 97.5 [degF] Temperature 2024-04-14 13:52:00.000 97.5 [degF] Temperature 2024-03-29 14:19:00.000 97.6 [degF] Temperature 2024-03-22 14:25:00.000 97.6 [degF] Temperature 2024-03-13 15:38:00.000 97.6 [degF] BMI (%) 2024-03-13 15:38:00.000 24 kg/m2 Height 2024-03-13 15:38:00.000 69 [in_us] Pulse 2024-04-14 13:52:00.000 88 /min Pulse 2024-03-29 14:19:00.000 88 /min Pulse 2024-03-22 14:25:00.000 86 /min Pulse 2024-03-13 15:38:00.000 88 /min Respirations 2024-04-14 13:52:00.000 16 /min Respirations 2024-03-29 14:19:00.000 16 /min Respirations 2024-03-22 14:25:00.000 16 /min Respirations 2024-03-13 15:38:00.000 16 /min Weight (lbs) 2024-03-29 14:19:00.000 160 [lb_av] Weight (lbs) 2024-03-22 13:46:00.000 164 [lb_av] Weight (lbs) 2024-03-13 15:38:00.000 163 [lb_av] Systolic Blood Pressure 2024-04-14 13:52:00.000 140 mm [Hg] Systolic Blood Pressure 2024-03-29 14:19:00.000 140 mm [Hg] Systolic Blood Pressure 2024-03-22 14:25:00.000 140 mm [Hg] Systolic Blood Pressure 2024-03-13 15:38:00.000 150 mm [Hg] Diastolic Blood Pressure 2024-04-14 13:52:00.000 70 mm [Hg] Diastolic Blood Pressure 2024-03-29 14:19:00.000 80 mm [Hg] Diastolic Blood Pressure 2024-03-22 14:25:00.000 80 mm [Hg] Diastolic Blood Pressure 2024-03-13 15:38:00.000 60 mm [Hg] Plan of Treatment Planned Activity Planned Date Details Comments Future Scheduled Test SKILLED NU RSE TO EVALUATE PATIENT, IDENTIFY PRIMARY AND CO-MORBID CONDITIONS CODED PER CODING GUIDELINES, AND DEVELOP PATIENT SPECIFIC PLAN OF CARE THAT INCLUDES PATIENT GOAL FOR HOME HEALTH. [code = SKILLED NURSE TO EVALUATE PATIENT, IDENTIFY PRIMARY AND CO-MORBID CONDITIONS CODED PER CODING GUIDELINES, AND DEVELOP PATIENT SPECIFIC PLAN OF CARE THAT INCLUDES PATIENT GOAL FOR HOME HEALTH.] Future Scheduled Test SKILLED NU RSE WILL MAINTAIN SITUATIONAL AWARENESS FOR SAFETY AND WILL NOTIFY CLINICAL OUTSIDE PLANT TECHNICIAN AND PHYSICIAN/PROVIDER WITH ANY CHANGE IN CONDITION. [code = SKILLED NURSE WILL MAINTAIN SITUATIONAL AWARENESS FOR SAFETY AND WILL NOTIFY CLINICAL OUTSIDE PLANT TECHNICIAN AND PHYSICIAN/PROVIDER WITH ANY CHANGE IN CONDITION.] Future Scheduled Test SKILLED NU RSE FOR O/A AND SKILLED TEACHING OF COPING SKILLS TO MANAGE ANXIETY AND MAINTAIN SAFETY. [code = SKILLED NURSE FOR O/A AND SKILLED TEACHING OF COPING SKILLS TO MANAGE ANXIETY AND MAINTAIN SAFETY.] Future Scheduled Test SKILLED NU RSE TO O/A OF PATIENTS MENTAL/BEHAVIORAL STATUS, ASSESS VITAL SIGNS EACH VISIT ALLOW 2 PRNS FOR MEDICATION MANAGEMENT. [code = SKILLED NURSE TO O/A OF PATIENTS MENTAL/BEHAVIORAL STATUS, ASSESS VITAL SIGNS EACH VISIT ALLOW 2 PRNS FOR MEDICATION MANAGEMENT.] Future Scheduled Test SKILLED NU RSE TO PERFORM HOME SAFETY AND FALL ASSESSMENT AND PROVIDE INSTRUCTION TO IMPLEMENT HOME SAFETY AND FALL PREVENTION STRATEGIES. [code = SKILLED NURSE TO PERFORM HOME SAFETY AND FALL ASSESSMENT AND PROVIDE INSTRUCTION TO IMPLEMENT HOME SAFETY AND FALL PREVENTION STRATEGIES.] Future Scheduled Test SKILLED NU RSE TO REVIEW PATIENT MEDICATIONS. INSTRUCT PATIENT/CAREGIVER ON MONITORING OF EFFECTIVENESS, ADVERSE DRUG REACTIONS, SIDE EFFECTS OF ALL MEDICATIONS (PRESCRIPTION/-OTC), AND HOW AND WHEN TO REPORT PROBLEMS. [code = SKILLED NURSE TO REVIEW PATIENT MEDICATIONS. INSTRUCT PATIENT/CAREGIVER ON MONITORING OF EFFECTIVENESS, ADVERSE DRUG REACTIONS, SIDE EFFECTS OF ALL MEDICATIONS (PRESCRIPTION/-OTC), AND HOW AND WHEN TO REPORT PROBLEMS.] Future Scheduled Test SKILLED NU RSE FOR OBSERVATION AND ASSESSMENT OF PATIENTS PAIN LEVEL AND EFFECTIVENESS OF PAIN MANAGEMENT REGIMEN. SKILLED NURSE TO INSTRUCT PATIENT/CAREGIVER REGARDING PHARMACOLOGIC AND NON-PHARMACOLOGIC PAIN CONTROL MEASURES. SKILLED NURSE TO REPORT TO PHYSICIAN IF PAIN IS UNCONTROLLED WITH CURRENT PAIN MANAGEMENT REGIMEN. [code = SKILLED NURSE FOR OBSERVATION AND ASSESSMENT OF PATIENTS PAIN LEVEL AND EFFECTIVENESS OF PAIN MANAGEMENT REGIMEN. SKILLED NURSE TO INSTRUCT PATIENT/CAREGIVER REGARDING PHARMACOLOGIC AND NON-PHARMACOLOGIC PAIN CONTROL MEASURES. SKILLED NURSE TO REPORT TO PHYSICIAN IF PAIN IS UNCONTROLLED WITH CURRENT PAIN MANAGEMENT REGIMEN.] Goal 2024-05-11 Patient Goal - T O BE MEDICATION COMPLIANT AND AVOID HOSPITALIZATION Goal Provider Goal - A PLAN OF CARE WILL BE ESTABLISHED THAT MEETS PATIENT'S ALF NEEDS AND INCLUDES PATIENT GOAL FOR HOME HEALTH. Goal Provider Goal - PATIENT WILL REMAIN SAFE IN THE COMMUNITY AND WILL BE FREE OF DANGER TO SELF AND OTHERS THROUGHOUT THE CERTIFICATION PERIOD. Goal Provider Goal - PATIENT WILL BE ABLE TO PERFORM DAILY FUNCTIONS AND HAVE OPTIMAL IMPROVEMENT IN LEVEL OF ANXIETY THROUGHOUT CERTIFICATION PERIOD. Goal Provider Goal - ALTERED MENTAL/BEHAVIORAL STATUS WILL BE IDENTIFIED PROMPTLY AND INTERVENTION INITIATED QUICKLY TO MINIMIZE ASSOCIATED RISKS THROUGHOUT CERTIFICATION PERIOD. Goal Provider Goal - PATIENT/CAREGIVER WILL VERBALIZE/DEMONSTRATE EFFECTIVE HOME SAFETY AND FALL PREVENTION STRATEGIES THROUGHOUT CERTIFICATION PERIOD. Goal Provider Goal - PATIENT/CAREGIVER WILL VERBALIZE UNDERSTANDING OF EDUCATION PROVIDED ON MEDICATIONS BY THE END OF THE CERTIFICATION PERIOD. Goal Provider Goal - PATIENT/CAREGIVER WILL DEMONSTRATE UNDERSTANDING OF PHARMACOLOGIC AND NONPHARMACOLOGIC PAIN CONTROL MEASURES AND PATIENT WILL HAVE IMPROVEMENT IN PAIN INTERFERING WITH ACTIVITY EVIDENCED BY PAIN CONTROLLED AT LEVEL OF 4 PATIENT GOAL ON 0-10 PAIN SCALE) OR LESS BY END OF CERTIFICATION PERIOD. Reason for Visit INDEPENDENT IN THE COMMUNITY Encounters Start Date/Time End Date/Time Encounter Type Admission Type Attending [facility] Care [facility] Care Department Encounter ID Discharge Date Discharge Status Discharge Condition Discharge Reason Percent Goals Met 2024-03-13 00:00:00 2024-05-11 00:00:00 Outpatient NEW ADMISSION SARMAD [facility] [id number] 2024-05-11 00:00:00 DISCHARGE TO HOME OR SELF CARE INDEPENDEN T IN THE COMMUNITY GOALS MET ( ONLY) 6.25
== END 2024-06-09 16:15 | disposition home or self-care (01) ==
PROVIDERS: PCP Internal Medicine; Visit Provider Internal Medicine
DX: D86.9 Sarcoidosis, unspecified (principal); N18.4 Chronic kidney disease, stage 4 (severe); R51.9 Headache, unspecified; G89.29 Other chronic pain; M54.50 Low back pain, unspecified; N50.819 Testicular pain, unspecified; R91.1 Solitary pulmonary nodule; E55.9 Vitamin D deficiency, unspecified; F90.9 Attention-deficit hyperactivity disorder, unspecified type; F41.1 Generalized anxiety disorder; E66.3 Overweight

== ENCOUNTER → 2024-06-09 15:40 | Outpatient (BNVA) | payer MEDICARE, MEDICAID, SELFPAY | PROVIDERS: PCP Internal Medicine; Visit Provider Internal Medicine | DX: N18.4 Chronic kidney disease, stage 4 (severe) (principal); D86.9 Sarcoidosis, unspecified; R51.9 Headache, unspecified; G89.29 Other chronic pain; M54.50 Low back pain, unspecified; N50.819 Testicular pain, unspecified; R91.1 Solitary pulmonary nodule; E55.9 Vitamin D deficiency, unspecified; F90.9 Attention-deficit hyperactivity disorder, unspecified type; F41.1 Generalized anxiety disorder; E66.3 Overweight; Z68.26 Body mass index [BMI] 26.0-26.9, adult; Z71.3 Dietary counseling and surveillance | CPT/HCPCS: 96127; 99212 ==

== ENCOUNTER 2024-10-09 14:18 | Outpatient (AMB) | payer MEDICARE, MEDICAID, SELFPAY ==
[2024-10-09 14:36] VITALS: BP 110/80; PULSE 74; O2SAT 98; BMI 24.6
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
--- OUTSIDE RECORDS SUMMARY | 2024-10-09 17:06 | XMS_ITS | Encounter Summary ---
Author Organization [facility] Address [address] [place] [address] Phone Care Team Providers Care Processing Operator Name Role Phone Jerome Strauss MD Primary Care Provider +1- [phone] Encounter Details Date Type Department Care Team (Late st Contact Info) Description 01/03/2024 Documentation Only [facility] [place], [address] [place] [address] Dalton Orantes, [address] [place] [address] Social History Tobacco Use Types Packs/Day Years Used Date Smoking Tobacco: Never Assessed Sex and Gender Information Value Date Recorded Sex Assigned at Not on file Legal Sex Male 9:11 AM EDT Gender Identity Not on file Sexual Orientation Not on file documented as of this encounter Plan of Treatment Not on file documented as of this encounter Visit Diagnoses Not on filedocumented in this encounter Care Teams Processing Operator Relationship Specialty Start Date End Date Jerome Strauss MD [address] [place] [address] PCP - General Internal Medicine 01/03/24 documented as of this encounter
--- OUTSIDE RECORDS SUMMARY | 2024-10-09 17:06 | XMS_ITS | Encounter Summary ---
Author Organization [facility] Address [address] [place] [address] Phone Care Team Providers Care Manager Servicing Name Role Phone Jerome Strauss MD Primary Care Provider +1- [phone] Encounter Details Date Type Department Care Team (Late st Contact Info) Description 01/03/2024 Documentation Only [facility] [place], [address] [place] [address] Cookie Weber [address] [place] [address] Social History Tobacco Use Types Packs/Day Years [...] on filedocumented in this encounter Care Teams Manager Servicing Relationship Specialty Start Date End Date Jerome Strauss MD [address] [place] [address] PCP - General Internal Medicine 01/03/24 documented as of this encounter
--- OUTSIDE RECORDS SUMMARY | 2024-10-09 17:06 | XMS_ITS | Encounter Summary ---
Author Organization [facility] Address [address] [place] [address] Phone Care Team Providers Care Division Director Name Role Phone Jerome Strauss MD Primary Care Provider +1- [phone] Encounter Details Date Type Department Care Team (Late st Contact Info) Description 01/05/2024 Documentation Only [facility] [place], [address] [place] [address] Dalton Orantes, [address] [place] [address] Social History Tobacco Use Types [...] on filedocumented in this encounter Care Teams Division Director Relationship Specialty Start Date End Date Jerome Strauss MD [address] [place] [address] PCP - General Internal Medicine 01/03/24 documented as of this encounter
--- OUTSIDE RECORDS SUMMARY | 2024-10-09 17:06 | XMS_ITS | Encounter Summary ---
Author Organization [facility] Address [address] [place] [address] Phone Care Team Providers Care Biomedical Engineering Supervisor Name Role Phone Jerome Strauss MD Primary Care Provider +1- [phone] Encounter Details Date Type Department Care Team (Late st Contact Info) Description 01/03/2024 Documentation Only [facility] [place], [address] [place] [address] Dalton Orantes, [address] [place] [address] Social History Tobacco Use Types [...] on filedocumented in this encounter Care Teams Biomedical Engineering Supervisor Relationship Specialty Start Date End Date Jerome Strauss MD [address] [place] [address] PCP - General Internal Medicine 01/03/24 documented as of this encounter
--- OUTSIDE RECORDS SUMMARY | 2024-10-09 17:06 | XMS_ITS | Encounter Summary ---
Author Organization [facility] Address [address] [place] [address] Phone Care Team Providers Care Animal Cruelty Investigation Supervisor Name Role Phone Jerome Strauss MD Primary Care Provider +1- [phone] Encounter Details Date Type Department Care Team (Late st Contact Info) Description 01/03/2024 Documentation Only [facility] [place], [address] [place] [address] Dalton Orantes, [address] [place] [address] Social History Tobacco Use Types [...] on filedocumented in this encounter Care Teams Animal Cruelty Investigation Supervisor Relationship Specialty Start Date End Date Jerome Strauss MD [address] [place] [address] PCP - General Internal Medicine 01/03/24 documented as of this encounter
--- OUTSIDE RECORDS SUMMARY | 2024-10-09 17:06 | XMS_ITS | Clinical Summary ---
Author Organization [facility], Address [address] [place] [address] [place] [address] Phone Care Team Providers Care Press Setup Operator Name Role Phone Jerome Strauss MD Primary Care Provider +1- [phone] Medications amphetamine-dex troamphetamine (ADDERALL) 20 MG tablet Take 1 tablet by mouth 1 (one) time each day 12/31/2023 Active LORazepam (ATIVAN) 1 MG tablet Take 1 mg by mouth 2 (two) times a day if needed 12/13/2023 Active methadone (DOLOPHINE) 10 MG tablet TAKE 1 TABLET BY MOUTH THREE TIMES DAILY AND 2 TABLETS AT BEDTIME NEEDED FOR CHRONIC PAIN 12/10/2023 Active gabapentin (NEURONTIN) 600 MG tablet Take 600 mg by mouth in the morning and 600 mg in the evening and 600 mg before bedtime. Active Social History Tobacco Use Types Packs/Day Years Used Date Smoking Tobacco: Never Assessed Sex and Gender Information Value Date Recorded Sex Assigned at Not on file Legal Sex Male 9:11 AM EDT Gender Identity Not on file Sexual Orientation Not on file Plan of Treatment Health Maintenance Due Date Last Done Comments Colorectal Cancer Screening: Annual FOBT 10/16/2012 Colorectal Cancer Screening: Colonoscopy 10/16/2012 Colorectal Cancer Screening: Sigmoidoscopy 10/16/2012 Influenza Vaccine (Season Ended) 2025 Hepatitis B Vaccine Aged Out No longe r eligible based on patient's age to complete this topic Pneumococcal Vaccine: Pediat rics (0 to 5 Years) and At-Risk Patients (6 to 64 Years) Aged Out No longer eligible b ased on patient's age to complete this topic Insurance MEDICARE MEDICAID [place] Care Teams Press Setup Operator Relationship Specialty Start Date End Date Jerome Strauss MD [address] [place] [address] [place] [id number] PCP - General Internal Medicine 01/03/24
--- OUTSIDE RECORDS SUMMARY | 2024-10-09 17:06 | XMS_ITS | Encounter Summary ---
Author Organization [facility] Address [address] [place] [address] Phone Care Team Providers Care Property Underwriter Name Role Phone Jerome Strauss MD Primary Care Provider +1- [phone] Encounter Details Date Type Department Care Team (Late st Contact Info) Description 01/03/2024 Documentation Only [facility] [place], [address] [place] [address] Cookie Weber [address] [place] [address] Social History Tobacco Use Types [...] on filedocumented in this encounter Care Teams Property Underwriter Relationship Specialty Start Date End Date Jerome Strauss MD [address] [place] [address] PCP - General Internal Medicine 01/03/24 documented as of this encounter
== END 2024-10-09 15:27 | disposition home or self-care (01) ==
LOC: HO.HMCH 14:18
PROVIDERS: PCP Internal Medicine; Visit Provider Internal Medicine
DX: D86.9 Sarcoidosis, unspecified (principal); N18.4 Chronic kidney disease, stage 4 (severe); R51.9 Headache, unspecified; G89.29 Other chronic pain; M54.50 Low back pain, unspecified; N50.819 Testicular pain, unspecified; R91.1 Solitary pulmonary nodule; E55.9 Vitamin D deficiency, unspecified; F90.9 Attention-deficit hyperactivity disorder, unspecified type; F41.1 Generalized anxiety disorder

== ENCOUNTER → 2024-10-09 14:18 | Outpatient (BNVA) | payer MEDICARE, MEDICAID, SELFPAY | PROVIDERS: PCP Internal Medicine; Visit Provider Internal Medicine | DX: D86.9 Sarcoidosis, unspecified (principal); N18.4 Chronic kidney disease, stage 4 (severe); R51.9 Headache, unspecified; G89.29 Other chronic pain; M54.50 Low back pain, unspecified; N50.819 Testicular pain, unspecified; R91.1 Solitary pulmonary nodule; E55.9 Vitamin D deficiency, unspecified; F90.9 Attention-deficit hyperactivity disorder, unspecified type; F41.1 Generalized anxiety disorder | CPT/HCPCS: 96127; 99212 ==

== ENCOUNTER 2024-11-15 15:38 | Outpatient (AMB) | payer MEDICARE, MEDICAID, SELFPAY ==
[2024-11-15 15:39] VITALS: BP 110/76; PULSE 68; O2SAT 95; BMI 23.4
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
--- OUTSIDE RECORDS SUMMARY | 2024-11-15 15:41 | XMS_ITS | Clinical Summary ---
Author Organization [facility] Address [address] [place] [address] Care Team Providers Care Director Of Event Marketing Name Role Phone Lion Haywood MD Primary Care Provider [phone] Allergies No known active allergies Medications Medication Sig Dispensed Refills Start Date End Date Status diazepam (VALIUM) 10 MG tablet Take 10 mg by mouth at bedtime. 0 Active METHADONE HCL OR Take 10 mg by mouth. Takes 5 or 6 tabs daily 0 Active ibuprofen (ADVIL) 200 MG tablet Take 200 mg by mouth. Bid-tid prn 0 Active oxycodone (ROXICODONE) 15 MG immediate release tablet One tab po tid x one week then bid x one week then qd x one week then 1/2 tab x one week 46 Tab 0 04/26/2017 Active OxyCODONE HCl ER (OXYCONTIN) 40 MG Tablet Extended Release 12 hour Abuse-DeterrentIndi cations:Epididymal pain Take 40 mg by mouth See Admin Instructions for 28 days. One tab x 7 days 7 Each 0 04/26/2017 Active Active Problems Problem Noted Date Dysplastic nevus 01/27/2017 Overview: Dysplastic nevus 01/18 right shoulder (mild atypia) Lumbago 01/02/2015 Epididymal pain 01/02/2015 Immunizations Name Administration Dates Next Due Influenza (> 6 Months) 05/29/2015 Family History Medical History Relation Name Comments CA Prostate Brother CA Prostate Father Relation Name Status Comments Brother Father Social History Tobacco Use Types Packs/Day Years Used Date Smoking Tobacco: Former Comments:use to smoke 1 ppd for 10 years, quit 5 years ago Alcohol Use Standard Drinks/Week Comments Not Asked 0 (1 standard drink = 0.6 oz pur e alcohol) Sex Assigned at Date Recorded Not on file Last Filed Vital Signs Vital Sign Reading Time Taken Comments Blood Pressure 110/62 03/10/2017 10:26 AM EDT Pulse 88 03/10/2017 10:26 AM EDT Temperature 36.9 ??C (98.4 ??F) 03/10/2017 10:26 AM E DT Respiratory Rate 14 03/10/2017 10:26 AM EDT Oxygen Saturation - - Inhaled Oxygen Concentration - - Weight 74.4 kg (164 lb) 03/10/2017 10:26 AM EDT Height 175.3 cm (5' 9 ) 03/10/2017 10:26 AM EDT Body Mass Index 24.22 03/10/2017 10:26 AM EDT Plan of Treatment Health Maintenance Due Date Last Done Comments Covid-19 Vaccine (#1) 04/17/1964 HEPATITIS C SCREENING 10/16/1981 TOBACCO CHECK/ADVISE 10/16/1981 DTAP/TDAP/TD (1 - Tdap) 10/16/1982 CHOLESTEROL SCREENING 1983 BASELINE HEALTH EXAM 40-64 2003 COLON CANCER SCREENING 10/16/2013 SHINGLES VACCINE (1 of 2) 10/16/2013 DEPRESSION SCREEN 11/06/2016 11/07/2015 BMI CHECK/ADVISE 07/05/2024 INFLUENZA (Season Ended) 2025 05/29/2015 PNEUMOCOCCAL VACCINE FOR HIGH RISK PATIENTS (#1) 10/16 Care Teams Director Of Event Marketing Relationship Specialty Start Date End Date Lion Haywood MD [address] [place] [address] [id number] PCP - General Internal Medicine 12/25/14
--- OUTSIDE RECORDS SUMMARY | 2024-11-15 15:41 | XMS_ITS | Encounter Summary ---
Author Organization [facility] Address [address] [place] [address] Care Team Providers Care Brake Operator Helper Name Role Phone Lion Haywood MD Primary Care Provider [phone] Reason for Visit * Reason Onset Date Comments REFERRAL 11/17/2016 Dermatology Encounter Details Date Type Department Care Team Description 11/17/2016 Telephone Dermatology - [address] [address] Lion Haywood MD [address] [place] [phone] REFERRAL (Dermatology) Social History Tobacco Use Types Packs/Day Years Used Date Smoking Tobacco: Former Comments:use to smoke 1 ppd for 10 years, quit 5 years ago Alcohol Use Standard Drinks/Week Comments Not Asked 0 (1 standard drink = 0.6 oz pur e alcohol) Sex Assigned at Date Recorded Not on file documented as of this encounter Miscellaneous Notes * Telephone Encounter - Shani Elizondo - 11/17/2016 8:19 AM EDT I have been unable to reach this patient by phone. A letter is being sent to the last known home address. documented in this encounter Plan of Treatment Not on file documented as of this encounter Visit Diagnoses Not on filedocumented in this encounter Care Teams Brake Operator Helper Relationship Specialty Start Date End Date Lion Haywood MD [address] [place] [phone] PCP - General Internal Medicine 12/25/14 documented as of this encounter
--- OUTSIDE RECORDS SUMMARY | 2024-11-15 15:41 | XMS_ITS | Encounter Summary ---
Author Organization [facility] Address [address] [place] [address] Care Team Providers Care Biofuels Processing Technician Name Role Phone Lion Haywood MD Primary Care Provider [phone] Encounter Details Date Type Department Care Team Description 03/18/2015 Rivet Tapping Machine Operator Report Medical Records [address] [place] [id number] Shahab Hylton [address] [place] [address] Drive [address] [place] [address] Social History Tobacco Use Types Packs/Day Years [...] on filedocumented in this encounter Care Teams Biofuels Processing Technician Relationship Specialty Start Date End Date Lion Haywood MD [address] [place] [phone] PCP - General Internal Medicine 12/25/14 documented as of this encounter
--- OUTSIDE RECORDS SUMMARY | 2024-11-15 15:42 | XMS_ITS | Encounter Summary ---
Author Organization [facility] Address [address] [place] [address] Phone Care Team Providers Care Plate Grinder Name Role Phone Jerome Strauss MD Primary Care Provider [phone] Encounter Details Date Type Department Care Team (Late st Contact Info) Description 01/03/2024 Documentation Only [facility], [address] [place] [address] Dalton Orantes, [address] [place] [address] Social History Tobacco Use Types [...] on filedocumented in this encounter Care Teams Plate Grinder Relationship Specialty Start Date End Date Jerome Strauss MD [address] [place] [address] PCP - General Internal Medicine 01/03/24 documented as of this encounter
--- OUTSIDE RECORDS SUMMARY | 2024-11-15 15:42 | XMS_ITS | Encounter Summary ---
Author Organization [facility] Address [address] [place] [address] Phone Care Team Providers Care Administrative Appeals Tribunal Member Name Role Phone Jerome Strauss MD Primary Care Provider [phone] Encounter Details Date Type Department Care Team (Late st Contact Info) Description 01/03/2024 Documentation Only [facility] [place], [address] [place] [address] Dalton Orantes, [address] [place] [address] Social History Tobacco Use Types [...] on filedocumented in this encounter Care Teams Administrative Appeals Tribunal Member Relationship Specialty Start Date End Date Jerome Strauss MD [address] [place] [address] PCP - General Internal Medicine 01/03/24 documented as of this encounter
--- OUTSIDE RECORDS SUMMARY | 2024-11-15 15:42 | XMS_ITS | Encounter Summary ---
Author Organization [facility] Address [address] [place] [address] Phone Care Team Providers Care Digital Content Specialist Name Role Phone Jerome Strauss MD Primary Care Provider [phone] Encounter Details Date Type Department Care Team (Late st Contact Info) Description 01/03/2024 Documentation Only [facility], [address] [place] [address] Cookie Weber [address] [place] [address] Social History Tobacco Use Types [...] on filedocumented in this encounter Care Teams Digital Content Specialist Relationship Specialty Start Date End Date Jerome Strauss MD [address] [place] [address] PCP - General Internal Medicine 01/03/24 documented as of this encounter
--- OUTSIDE RECORDS SUMMARY | 2024-11-15 15:42 | XMS_ITS | Encounter Summary ---
Author Organization [facility] Address [address] [place] [address] Phone Care Team Providers Care Health Informatics Specialist Name Role Phone Jerome Strauss MD Primary Care Provider [phone]- [phone] Encounter Details Date Type Department Care Team (Late st Contact Info) Description 01/03/2024 Documentation Only [facility] [place], [address] [place] [address] Cookie Weber [address] [place] [address] Social History Tobacco Use Types [...] on filedocumented in this encounter Care Teams Health Informatics Specialist Relationship Specialty Start Date End Date Jerome Strauss MD [address] [place] [address] PCP - General Internal Medicine 01/03/24 documented as of this encounter
--- OUTSIDE RECORDS SUMMARY | 2024-11-15 15:42 | XMS_ITS | Encounter Summary ---
Author Organization [facility] Address [address] [place] [address] Phone Care Team Providers Care Dsp Engineer Name Role Phone Jerome Strauss MD Primary Care Provider [phone] Encounter Details Date Type Department Care Team (Late st Contact Info) Description 01/05/2024 Documentation Only [facility] [place], [address] [place] [address] Dalton Orantes, [address] [place] [address] Social History Tobacco Use Types [...] on filedocumented in this encounter Care Teams Dsp Engineer Relationship Specialty Start Date End Date Jerome Strauss MD [address] [place] [address] PCP - General Internal Medicine 01/03/24 documented as of this encounter
--- OUTSIDE RECORDS SUMMARY | 2024-11-15 15:42 | XMS_ITS | Clinical Summary ---
Author Organization [facility], Address [address] [place] [address] [place] [address] Phone Care Team Providers Care Buckle Sorter Name Role Phone Jerome Strauss MD Primary Care Provider [phone]- [phone] Medications amphetamine-dex troamphetamine (ADDERALL) 20 MG tablet [...] Colonoscopy 10/16/2012 Colorectal Cancer Screening: Sigmoidoscopy 10/16/2012 Pneumococcal Vaccine: 50+ Ye ars (1 of - PCV) 10/16/2013 Influenza Vaccine (Season Ended) 2025 Hepatitis B Vaccine Aged Out No longe r eligible based on patient's age to complete this topic Insurance Medicare Medicaid [place] Care Teams Buckle Sorter Relationship Specialty Start Date End Date Jerome Strauss MD [address] [place] [address] PCP - General Internal Medicine 01/03/24
--- OUTSIDE RECORDS SUMMARY | 2024-11-15 15:42 | XMS_ITS | Encounter Summary ---
Author Organization [facility] Address [address] [place] [address] Care Team Providers Care Automotive Fleet Supervisor Name Role Phone Lion Haywood MD Primary Care Provider [phone] Encounter Details Date Type Department Care Team Description 03/30/2016 [facility] Medical Records [address] [place] [id number] Abstract, Provider Social History Tobacco Use Types Packs/Day Years [...] on filedocumented in this encounter Care Teams Automotive Fleet Supervisor Relationship Specialty Start Date End Date Lion Haywood MD [address] [place] [address] PCP - General Internal Medicine 12/25/14 documented as of this encounter
--- OUTSIDE RECORDS SUMMARY | 2024-11-15 15:42 | XMS_ITS | Encounter Summary ---
Author Organization [facility] Address [address] [place] [address] Phone Care Team Providers Care Nitro Worker Name Role Phone Jerome Strauss MD Primary Care Provider [phone] Encounter Details Date Type Department Care Team (Late st Contact Info) Description 01/03/2024 Documentation Only [facility] [place], [address] [place] [address] Dalton Orantes, [address] [place] [address] Social History Tobacco Use Types [...] on filedocumented in this encounter Care Teams Nitro Worker Relationship Specialty Start Date End Date Jerome Strauss MD [address] [place] [address] PCP - General Internal Medicine 01/03/24 documented as of this encounter
--- OUTSIDE RECORDS SUMMARY | 2024-11-15 15:42 | XMS_ITS | Clinical Summary ---
Author Organization [facility] Address [address] [place] [address] Care Team Providers Care Travel Rn Or Name Role Phone Daniel Hernandes MD Primary Care Provider [phone] Allergies No known active allergies Active Problems Problem Noted Date Diagnosed Date Chronic epididymitis 08/18/2019 Chronic right-sided low back pain 08/18/2019 Social History Tobacco Use Types Packs/Day Years Used Date Smoking Tobacco: Never Assessed Sex and Gender Information Value Date Recorded Sex Assigned at Not on file Gender Identity Not on file Sexual Orientation Not on file Last Filed Vital Signs Vital Sign Reading Time Taken Comments Blood Pressure 130/93 08/18/2019 11:53 AM EST Pulse 109 08/18/2019 11:53 AM EST Temperature - - Respiratory Rate - - Oxygen Saturation 96% 08/18/2019 11:53 AM EST Inhaled Oxygen Concentration - - Weight 81.2 kg (179 lb) 08/18/2019 11:53 AM EST Height 175.3 cm (5' 9 ) 08/18/2019 11:53 AM EST Body Mass Index 26.43 08/18/2019 11:53 AM EST Plan of Treatment Health Maintenance Due Date Last Done Comments Hepatitis C Screening 1965 COVID-19 Vaccine (#1) 04/17/1964 Depression Screening 1975 Preventative Health Evaluation 10/16/1981 DTap / Tdap / Td (1 - Tdap) 10/16/1982 Colon Cancer Screening (Colonoscopy) 10/16/2008 Shingrix-Zoster Vaccine (1 of 2) 10/16/2013 BMI Counseling 08/18/2020 08/18/2019 Influenza Vaccine (#1) 2024 05/29/2015 RSV Adult > 60+ Yrs or Pregn ant (1 - 1-dose 75+ series) 10/16/2038 Hepatitis B Vaccines Aged Out No long er eligible based on patient's age to complete this topic Pneumococcal Vaccine Aged Out No long er eligible based on patient's age to complete this topic RSV Ped < 20 months Aged Out No longe r eligible based on patient's age to complete this topic Care Teams Travel Rn Or Relationship Specialty Start Date End Date Daniel Hernandes MD PCP - General Internal Medicine 08/18/19
== END 2024-11-15 16:14 | disposition home or self-care (01) ==
LOC: HO.HMCH 15:39
PROVIDERS: PCP Internal Medicine; Visit Provider Internal Medicine
DX: D86.9 Sarcoidosis, unspecified (principal); N18.4 Chronic kidney disease, stage 4 (severe); R51.9 Headache, unspecified; G89.29 Other chronic pain; M54.50 Low back pain, unspecified; N50.819 Testicular pain, unspecified; R91.1 Solitary pulmonary nodule; E55.9 Vitamin D deficiency, unspecified; F90.9 Attention-deficit hyperactivity disorder, unspecified type; F41.1 Generalized anxiety disorder

== ENCOUNTER → 2024-11-15 15:38 | Outpatient (BNVA) | payer MEDICARE, MEDICAID, SELFPAY | PROVIDERS: PCP Internal Medicine; Visit Provider Internal Medicine | DX: D86.9 Sarcoidosis, unspecified (principal); N18.4 Chronic kidney disease, stage 4 (severe); R51.9 Headache, unspecified; G89.29 Other chronic pain; M54.50 Low back pain, unspecified; N50.819 Testicular pain, unspecified; R91.1 Solitary pulmonary nodule; E55.9 Vitamin D deficiency, unspecified; F90.9 Attention-deficit hyperactivity disorder, unspecified type; F41.1 Generalized anxiety disorder | CPT/HCPCS: 96127; 99212 ==

== ENCOUNTER 2025-05-18 10:55 | Outpatient (AMB) | payer MEDICARE, MEDICAID, SELFPAY ==
[2025-05-18 11:09] VITALS: BP 100/72; PULSE 78; O2SAT 98; BMI 24.5
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
== END 2025-05-18 11:55 | disposition home or self-care (01) ==
LOC: HO.HMCH 10:55
PROVIDERS: PCP Internal Medicine; Visit Provider Internal Medicine
DX: N18.4 Chronic kidney disease, stage 4 (severe) (principal); D86.9 Sarcoidosis, unspecified; R51.9 Headache, unspecified; G89.29 Other chronic pain; M54.50 Low back pain, unspecified; N50.819 Testicular pain, unspecified; R91.1 Solitary pulmonary nodule; E55.9 Vitamin D deficiency, unspecified; F90.9 Attention-deficit hyperactivity disorder, unspecified type; F41.1 Generalized anxiety disorder

== ENCOUNTER → 2025-05-18 10:55 | Outpatient (BNVA) | payer MEDICARE, MEDICAID, SELFPAY | PROVIDERS: PCP Internal Medicine; Visit Provider Internal Medicine | DX: N18.4 Chronic kidney disease, stage 4 (severe) (principal); D86.9 Sarcoidosis, unspecified; R51.9 Headache, unspecified; G89.29 Other chronic pain; M54.50 Low back pain, unspecified; N50.819 Testicular pain, unspecified; R91.1 Solitary pulmonary nodule; E55.9 Vitamin D deficiency, unspecified; G90.9 Disorder of the autonomic nervous system, unspecified; F41.1 Generalized anxiety disorder | CPT/HCPCS: 96127; 99212 ==